=== PATIENT | male | born 1990 | race Caucasian/White ===

== ENCOUNTER 2022-07-22 02:14 | Emergency (ER) | payer OTHER ==
[~2022-07-22] VITALS: Ht 172.7 cm; Wt 88.6 kg
[2022-07-22 10:32] VITALS: BP 122/82
== END 2022-07-22 10:31 | disposition home or self-care (01) ==
LOC: ER 02:14
DX: T40.711A Poisoning by cannabis, accidental (unintentional), initial encounter (principal); Y92.9 Unspecified place or not applicable
CPT/HCPCS: 99281